=== PATIENT | female | born 1980 | race Caucasian/White ===

== ENCOUNTER 2017-05-09 01:59 | Emergency (ER) | payer MEDICAID, OTHER ==
[~2017-05-09] VITALS: Ht 167.6 cm; Wt 76.5 kg
[2017-05-09 02:09] VITALS: Ht 167.6 cm; Wt 76.5 kg
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
[2017-05-09] MEDS ORDERED: HYDROCODONE/APAP (10/325) TAB PO ONE (05:30)
--- NOTE | 2017-05-09 05:34 | RADRPT ---
PROCEDURE: CT LUMBAR SPINE WITHOUT CONTRAST CLINICAL INDICATION: 36-year-old female with back pain and left lower extremity numbness. TECHNIQUE: The study was performed utilizing a [employer] VCT 64-slice CT scanner. Direct axia l sections were obtained through the lumbar spine. Coronal and sagittal re-formations were obtained . One or more of the following dose reduction techniques were utilized: automated exposure control, adjustment of the mA and/or kV according to patient's size or use of iterative reconstruction techni que. The images were viewed on a PACS workstation. CTD/vol = 25.7 mGy; Total Exam DLP = 816.1 mGy-cm . COMPARISON: No prior studies are available for comparison. FINDINGS: The lumbar vertebral bodies have normal heights and anatomic alignment. There is no evidence for acu te lumbar spine fracture or subluxation. At L1-2 the disk space has a normal appearance. There is no significant central or foraminal stenos is. At L2-3 the disk space has a normal appearance. There is no significant central or foraminal stenos is. At L3-4 there is mild diffuse disk bulge. This is resulting in minimal central spinal stenosis. Th ere is no significant foraminal stenosis. At L4-5 there is mild diffuse disk bulge resulting in mild bilateral subarticular recess stenosis an d mild central spinal stenosis. At L5-S1 there is been a prior left hemilaminotomy. There has been a posterior lumbar fusion (PLF) with bilateral pedicle screws at L5-S1 and intervening rods. These are creating metallic streak art ifact limiting evaluation of the soft tissues. There is evidence for an anterior lumbar interbody f usion (ALIF) with anterior screws and a cage in place. There is incomplete fusion of the interspace . There is a nonobstructing mid right renal calculus measuring approximately 4 x 4 mm. IMPRESSION: 1. No CT evidence for acute lumbar spine fracture. 2. At L4-5 there is mild discogenic disease resulting in mild bilateral subarticular recess stenosi s and mild central spinal stenosis. 3. At L5-S1 there has been a prior left hemilaminotomy as well as posterior lumbar fusion (PLF) and anterior lumbar interbody fusions (ALIF) with incomplete fusion of the interspaces. There is metal lic streak artifact limiting evaluation of the soft tissues. 4. Nonobstructing mid-right renal 4 mm calculus. .Yao Adams MD, Date Time Electronically viewed and signed by .Yao Adams MD, MD on 05/09/2017 05:34 .Irina/
[2017-05-09] MEDS ORDERED: HYDR-902 PO (05:52)
[2017-05-09] MEDS ORDERED: CYCL-319 PO (05:52)
[2017-05-09] MEDS ORDERED: IBUP-1542 PO (05:52)
[2017-05-09] MEDS ORDERED: morphine 10 MG INJ IM ONE (06:00)
[2017-05-09 06:24] VITALS: BP 121/81; PULSE 71; RESP 18
== END 2017-05-09 06:25 | disposition home or self-care (01) ==
LOC: FTE 01:59
DX: S39.92XA Unspecified injury of lower back, initial encounter (principal); S00.83XA Contusion of other part of head, initial encounter; J34.2 Deviated nasal septum; F17.210 Nicotine dependence, cigarettes, uncomplicated; Y08.89XA Assault by other specified means, initial encounter
CPT/HCPCS: 70486; 72131; J2270; Z7610; 96372

== ENCOUNTER 2018-12-14 18:41 | Emergency (ER) | payer OTHER ==
[~2018-12-14] VITALS: Ht 157.5 cm; Wt 81.9 kg
[~2018-12-14 18:41] MED LIST: CYCL10TA7 PO; HYDR-3980 PO; IBUP-1542 PO
[2018-12-14 18:43] VITALS: BP 145/83; PULSE 83; RESP 18; Ht 157.5 cm; Wt 81.9 kg
[2018-12-14] MEDS ORDERED: morphine 4 MG/ML VIAL IM STA (21:53)
[2018-12-14] MEDS ORDERED: KETOROLAC 30 MG INJ IM STA (21:53)
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
[2018-12-15] MEDS ORDERED: IBUP800T48 PO (01:18)
[2018-12-15] MEDS ORDERED: META-121 PO (01:18)
[2018-12-15] MEDS ORDERED: DOCU-144 PO (01:19)
[2018-12-15] MEDS ORDERED: TAMS-14 PO (01:19)
== END 2018-12-15 01:32 | disposition home or self-care (01) ==
LOC: FTE 18:41
DX: S30.0XXA Contusion of lower back and pelvis, initial encounter (principal); N20.0 Calculus of kidney; R07.81 Pleurodynia; V43.62XA Car passenger injured in collision with other type car in traffic accident, initial encounter; Z87.891 Personal history of nicotine dependence
CPT/HCPCS: 71046; 71100; 72131; 81001; 81025; 87086; 96372; J1885; J2270; Z7502